=== PATIENT | male | born 1970 | race Caucasian/White ===

== ENCOUNTER 2020-06-18 19:46 | Emergency (ER) | payer MEDICAID, SELFPAY ==
[2020-06-18 19:43] VITALS: BP 124/77; PULSE 84; RESP 16; TEMP 36.7; O2SAT 96; BMI 28.0
--- NOTE | 2020-06-18 19:45 | PC.NURSE ---
unable to obtain pt medical history at this time. pt is alert but not oriented to self and place. pt refuses to follow commands and becomes combative when attempted to move or assess.
--- NOTE | 2020-06-18 19:51 | PC.NURSE ---
[place] [employer] at bedside on arrival. Davida ALVAREZ called to be at bedside for combative pt.
--- NOTE | 2020-06-18 19:53 | PC.NURSE ---
police at bedside addressing pt. police stated they would not be staying with pt
--- NOTE | 2020-06-18 20:10 | PC.NURSE ---
Pt refusing all treatment at this time
--- NOTE | 2020-06-18 20:10 | [facility].EDAMS ---
ED Disposition Clinical Impression: Drug use Disposition: Home, Self-Care Condition on Discharge: Fair Instructions: DI for Drug Abuse and Drug Addiction Additional Instructions: see pcp for follow up Referrals: PCP,Radha [Primary Care Provider] - - Critical Care Critical Care Time: No Attestation: On 06/18/20, the high probability of a clinically significant, sudden or life threatening deterioration of the following system(s) required my full and direct attention, intervention and personal management. The time I documented below is in addition to time spent performing reported procedures but includes the following listed in this critical care notation. Medical Decision Making - Medical Records Medical records reviewed: Yes: I reviewed the patient's medical records. - Markell Inquiry Pt receiving controlled substance: No Vital Signs: 06/18/20 19:43 06/18/20 20:42 06/18/20 21:28 Temperature 98.1 F Temperature Source Oral Pulse Rate [Left Radial] 84 62 62 Respiratory Rate 16 18 Blood Pressure [Right Arm] 124/77 Blood Pressure Mean [Right Arm] 92 Blood Pressure Source [Right Arm] Automatic Cuff Blood Pressure Position [Right Arm] Sitting 02 Sat by Pulse Oximetry 96 91 L 93 L Oxygen Delivery Method Room Air Room Air Altered Mental Status HPI - General Chief Complaint: Altered Mental Status Stated Complaint: altered mental status Time Seen by Provider: 06/18/20 20:00 Mode of Arrival: Ambulatory Source of Information: Patient, Law Enforcement, Medical Record Limitations: No Limitations Description of Symptoms (Recalled from ER Triage Doc. by RN): pt brought in by EMS and police. pt was cited by police for being under the influence of alcohol and snorting Xanax. pt brought in for altered mental status and was reported to be combative by EMS. pt is alert at this time but not oriented to self or person. - History of Present Illness HPI narrative: pt has been using benzo and etoh and combative - no specific c/o - no fever or rash and no trauma MD complaint: intoxication Onset (ago): hour(s) Timing confirmed by: other (police) Severity: moderate Context: alcohol abuse, drug abuse Associated symptoms: denies other symptoms H History - Hepatitis A Screen Drug use history?: No High risk sexual behaviors?: No History of sexually transmitted infection?: No Currently employed?: No Childcare worker?: No Do you have indoor plumbing?: Yes Do you have electricity?: Yes Attestation statement:: This patient has been screened for Hepatitis A risk factors. I have reviewed the patient's past medical history: Yes ROS Obtained: Yes All systems reviewed & no additional complaints - Constitutional Constitutional: Denies fever(s) - Eyes Eyes: Denies change in vision - ENT Ears, Nose, Mouth, and Throat: Denies sore throat - Cardiovascular Cardiovascular: Denies chest pain - Respiratory Respiratory: No shortness of breath - Gastrointestinal Gastrointestingal: Denies: abdominal pain - Genitourinary Male Genitourinary: Denies hematuria - Musculoskeletal Musculoskeletal: Denies joint pain, Denies joint swelling - Integumentary/Breasts Skin/Breast: Denies rash - Neurologic Neurologic: Denies focal weakness, Denies headache(s), Denies seizure-like activity Physical Exam - General General appearance: alert, appears intoxicated - Head Head exam: normocephalic - Eye Eye exam: Present: PERRL, EOMI. Absent: scleral icterus - ENT ENT exam: Present: mucous membranes dry - Neck Neck exam: Present: trachea midline - Respiratory Respiratory exam: Present: normal lung sounds bilaterally. Absent: respiratory distress - Cardiovascular Cardiovascular exam: Present: regular rate. Absent: systolic murmur - Abdominal Exam Abdominal exam: Present: soft - Extremities Exam Extremities exam: Present: full ROM - Neurological Exam Neurological exam: Present: alert, hermann
--- NOTE | 2020-06-18 20:11 | PC.NURSE ---
Pt has been aggressive and combative towards staff since arrival.
--- NOTE | 2020-06-18 20:35 | PC.NURSE ---
resting,eyes closed. resp e/u.
[2020-06-18 20:42] VITALS: PULSE 62; RESP 18; O2SAT 91
--- NOTE | 2020-06-18 20:42 | PC.NURSE ---
refusing bp cuff at this time.
[2020-06-18 21:28] VITALS: PULSE 62; O2SAT 93
--- NOTE | 2020-06-18 22:51 | PC.NURSE ---
pt able to stand and ambulate to the bathroom with stand by assistance. tolerated well.
[2020-06-18 23:00] VITALS: BP 124/75; PULSE 86; RESP 16; O2SAT 96
[2020-06-18 23:41] VITALS: BP 119/73; PULSE 66; RESP 15; TEMP 36.5; O2SAT 98
== END 2020-06-18 23:42 | disposition home or self-care (01) ==
PROVIDERS: Emergency Provider Emergency Medicine
DX: F10.10 Alcohol abuse, uncomplicated (principal); F19.90 Other psychoactive substance use, unspecified, uncomplicated
CPT/HCPCS: 99282